=== PATIENT | male | born 1955 | race Caucasian/White ===

== ENCOUNTER 2020-05-26 15:54 | Outpatient (CLI) | payer BC, SELFPAY ==
[2020-05-26 17:03] LABS: SARS-CoV-2 Ag Negative (Negative)
== END 2020-05-26 15:55 | disposition home or self-care (01) ==
PROVIDERS: PCP Internal Medicine; Visit Provider Internal Medicine
DX: Z20.828 Contact with and (suspected) exposure to other viral communicable diseases (principal)
CPT/HCPCS: 87426

== ENCOUNTER 2020-06-25 15:40 | Outpatient (CLI) | payer BC, SELFPAY ==
[2020-06-25 16:46] LABS: SARS-CoV-2 Ag Positive (Negative)
== END 2020-06-25 15:41 | disposition home or self-care (01) ==
LOC: CHSLAB 15:42
PROVIDERS: PCP Internal Medicine; Visit Provider Internal Medicine
DX: U07.1 COVID-19 (principal)
CPT/HCPCS: 87426; C9803

== ENCOUNTER 2020-06-27 10:30 | Outpatient (RCR) | payer BC, SELFPAY ==
--- NOTE | 2020-06-26 12:14 | PC.NURSE ---
Patient instructed on covid infusion procedure and side effects.
[2020-06-27 10:17] VITALS: BP 156/83; PULSE 74; RESP 20; TEMP 37.2; O2SAT 98
[2020-06-27] MEDS: diphenhydrAMINE HCl CAP 25 MG CAPSULE PO (10:25)
[2020-06-27] MEDS: ACETAMINOPHEN 325 MG TABLET 650 MG PO (10:25)
[2020-06-27] MEDS: FAMOTIDINE 20 MG TABLET PO (10:25)
--- NOTE | 2020-06-27 11:02 | PC.NURSE ---
Patient given covid 19 antibody discharge instruction sheet and patient given written facts sheet on covid 19 and Bamlanivimab with understanding stated to instructions.
[2020-06-27 12:22] VITALS: BP 106/57; PULSE 57; O2SAT 98
--- NOTE | 2020-06-30 10:33 | PC.NURSE ---
Patient states he had no side effects from the Bamlanivimab infusion. Patient states he feels a little better and had no side effects from the infusion.
== END 2020-06-30 11:26 ==
LOC: AMCINF 10:30
PROVIDERS: PCP Internal Medicine; Visit Provider Internal Medicine
DX: Z23 Encounter for immunization (principal); U07.1 COVID-19; I12.9 Hypertensive chronic kidney disease with stage 1 through stage 4 chronic kidney disease, or unspecified chronic kidney disease; N18.9 Chronic kidney disease, unspecified; E11.9 Type 2 diabetes mellitus without complications
CPT/HCPCS: A9270; J7050; M0239; Q0239

== ENCOUNTER 2020-07-04 11:33 | Outpatient (CLI) | payer BC, SELFPAY ==
--- NOTE | ~2020-07-04 | XR_ITS ---
EXAMINATION: XR chest 2V EXAM DATE: 07/04/2020 12:00 INDICATION: Tachycardia. COVID pneumonia. TECHNIQUE: Frontal and lateral projections of the chest obtained and reviewed. Comparison is made to prior examination from 05/26/2016. FINDINGS: Possible small amount of bilateral groundglass opacity without confluent consolidation. Fol low-up can be obtained if symptoms persist. No pneumothorax or pleural effusion. Cardiomediastinal si lhouette is normal. Patient has diffuse idiopathic skeletal hyperostosis (DISH). There are cholecyste ctomy clips. IMPRESSION: Possible small amount of ill-defined acute infectious process. Reviewed, dictated and finalized at location A. Y GRAZER
== END 2020-07-04 11:34 | disposition home or self-care (01) ==
LOC: CHSIMG 11:35
PROVIDERS: PCP Internal Medicine; Visit Provider Internal Medicine
DX: U07.1 COVID-19 (principal); J12.82 Pneumonia due to coronavirus disease 2019; I48.91 Unspecified atrial fibrillation; I10 Essential (primary) hypertension; E11.9 Type 2 diabetes mellitus without complications
CPT/HCPCS: 71046

== ENCOUNTER 2020-07-09 13:14 | Emergency (ER) | payer BC, SELFPAY ==
[2020-07-09] VITALS (9 sets, daily range): BP systolic 90–144; BP diastolic 52–93; PULSE 67–100; RESP 20; TEMP 36.4–36.7; O2SAT 84–96
--- NOTE | ~2020-07-09 | XR_ITS ---
XR chest 1V portable DATE: 07/09/2020 14:27 INDICATION: Chest pain and pressure for 3 days. Covid diagnosis on 06/25/2020. TECHNIQUE: Portable upright AP chest on July 09, 2020 1431 hours COMPARISON: 07/04/2020 2 view chest FINDINGS: Bilateral old rib fracture deformities. Ill-defined increased density overlying the left mid and lower lung zones is noted, which may indicat e pneumonia. Pleural thickening would be another consideration. Consider CT thorax for more definitiv e evaluation. Right lung appears clear. Old pulmonary granulomatous disease is noted on the left. Normal heart size. No hilar or mediastinal enlargement. No pleural effusion or pulmonary vascular congestion or pneumothorax. IMPRESSION: Multiple bilateral old rib fractures Nonspecific ill-defined increased density overlying the left mid and lower lung zones, which might in dicate infiltrate or possibly pleural thickening. Consider CT thorax for more definitive evaluation Old pulmonary granulomatous disease Reviewed, dictated and finalized at location A. [facility] [employer] IMPRESSION: Multiple bilateral old rib fractures Nonspecific ill-defined increased density overlying the left mid and lower lung zones, which might indicate infiltrate or possibly pleural thickening. Conside r CT thorax for more definitive evaluation Old pulmonary granulomatous disease
--- NOTE | 2020-07-09 13:42 | ECG_ITS ---
Measurements Intervals [place] Rate: 93 P: [place]: 0 QRS: 46 QRSD: 102 T: 64 QT: 377 QTc: 470 Interpretive Statements ATRIAL FIBRILLATION VENTRICULAR PREMATURE COMPLEX DELAYED PRECORDIAL R/S TRANSITION BASELINE ARTIFACT- I, II, III, AVF ABNORMAL ECG Electronically Signed On 07-09-2020 13:57:43 RIB SAWYER by Rishabh Helms D.O.
--- NOTE | 2020-07-09 13:45 | ED.GENADULT ---
HPI - General Adult General Chief complaint: Chest Pain Stated complaint: chest pains Source: patient Mode of arrival: ambulatory History of Present Illness HPI narrative: Edward is a 65M with a complex PMH including gout, HTN, HLD, Afib, and mood disorder that was at his PCP office and was found to have tachycardia with an irregularly irregular rhythm and chest pain so he was sent to the ED. His chest pain started 3 days ago when he was at home. It was originally getting better but then got worse today. It is described as a 4/10 pressure in his chest that does not radiate. It is accompanied by some lightheadedness but no nausea/vomiting or shortness of breath. Related Data Home Medications Medication Instructions Recorded Confirmed allopurinol 100 mg PO BID 06/27/20 07/09/20 amitriptyline 25 mg PO HS 06/27/20 07/09/20 aspirin [Aspir-81] 81 mg DAILY 06/27/20 07/09/20 atorvastatin 40 mg PO DAILY 06/27/20 07/09/20 carvedilol 25 mg PO BID 06/27/20 07/09/20 duloxetine 60 mg PO DAILY 06/27/20 07/09/20 empagliflozin [Jardiance] 25 mg PO DAILY 06/27/20 07/09/20 ezetimibe 10 mg PO DAILY 06/27/20 07/09/20 felodipine 5 mg PO DAILY 06/27/20 07/09/20 fenofibrate 160 mg PO DAILY 06/27/20 07/09/20 gabapentin 1,200 mg PO QPM 06/27/20 07/09/20 icosapent ethyl [Vascepa] 1 g PO BID 06/27/20 07/09/20 insulin regular hum U-500 conc 180 unit SUBCUT QAM 06/27/20 07/09/20 [Humulin R U-500 (Conc) Insulin] magnesium 30 mg PO DAILY 06/27/20 07/09/20 montelukast 10 mg PO DAILY 06/27/20 07/09/20 pantoprazole 40 mg PO QAM 06/27/20 07/09/20 prednisone 5 mg PO DAILY 06/27/20 07/09/20 torsemide 20 mg PO QAM 06/27/20 07/09/20 apixaban [Eliquis] 5 mg PO DAILY 07/09/20 07/09/20 Allergies Allergy/AdvReac Type Severity Reaction Status Date / Time Penicillins Allergy Unknown Verified 07/09/20 13:49 Review of Systems Constitutional: Constitutional: Denies chills and Denies fever(s) Eyes: Eyes: Reports no additional eye complaints ENT: Reports system reviewed and no additional complaints, except as documented Cardiovascular: Cardiovascular: Reports as per HPI Respiratory: Respiratory: Reports no additional respiratory complaints Gastrointestinal: Gastrointestinal: Reports no additional gastrointestinal complaints Genitourinary: Genitourinary: Reports no additional male genitourinary complaints Musculoskeletal: Musculoskeletal: Reports no additional musculoskeletal complaints Integumentary/Breasts: Skin/Breast: Reports system reviewed and no additional complaints, except as docu Neurologic: Reports system reviewed and no additional complaints, except as documented Psychiatric: Psychiatric: Reports no additional psychiatric complaints Endocrine: Endocrine: Reports no additional endocrine complaints Hematologic/Lymphatic: Hematologic/Lymphatic: Reports no additional hematologic/lymphatic complaints Allergic/Immunologic: Allergic/Immunologic: Reports no additional allergic/immunologic complaints [facility] Social History Social History Smoking status: Never smoker Gender identity (if verbalized by the patient): Male Spiritual care concerns: No Exam Const: General: no acute distress and alert Orientation/consciousness: patient oriented x3 Limitations: No altered mental status HENMT: Head: normal to inspection Other: atraumatic Eyes: Pupils: Equal, round and reactive pupils present Neck: Neck: normal visual inspection Chest: Chest palpation & inspection: normal inspection of the chest Resp: Effort & Inspection: normal respiratory effort, not labored, no retractions and not tachypneic Auscultation: clear to auscultation bilaterally Cardio: Rate: regular rate Other: irregularly irregular rhythm, no murmur GI: GI Palp: Yes Soft to palpation, No Tenderness to palpation present (GI) and No Guarding due to palpation present (GI) Back/Spine/Pelvis: Back: no CVA tenderness Ski
[2020-07-09] MEDS: NITROGLYCERIN SL 0.4 MG TABLET SUBLINGUAL ×2 (14:00→14:14)
[2020-07-09] MEDS: ASPIRIN 81 MG CHEWABLE TABLET 324 MG PO (14:03)
--- NOTE | 2020-07-09 14:03 | PC.NURSE ---
1400 CP 09/13 B/P 133/77 NITRO #1 GIVEN
[2020-07-09 14:06] LABS: Basophils Absolute Auto 0.05 K/mm3 (0.00-0.10); Basophils Percent Auto 0.6 % (0.0-1.0); Eosinophils Percent Auto 3.7 % (1.0-6.0); Hematocrit 41.5 % (40.0-54.0); Hemoglobin 13.7 g/dL (14.0-18.0); Immature Granulocyte Absolute 0.04 K/mm3 (0.00-0.00); Immature Granulocyte Percent A 0.5 % (0.0-0.0); Lymphocytes Absolute Auto 1.99 K/mm3 (1.10-4.50); Lymphocytes Percent Auto 24.7 % (18.0-42.0); Mean Corpuscular Hemoglobin 27.6 pg (27.0-31.0); Mean Corpuscular Volume 83.5 fL (78.0-102.0); Mean Platelet Volume 9.7 fl (8.7-11.0); Monocytes Absolute Auto 0.87 K/mm3 (0.10-0.90); Monocytes Percent Auto 10.8 % (2.0-11.0); Neutrophils Absolute Auto 4.8 K/mm3 (1.7-7.2); Neutrophils Percent Auto 59.7 % (50.0-70.0); Platelet Count Result 343 K/mm3 (150-420); Red Blood Count 4.97 M/mm3 (4.70-6.10); Red Cell Distribution Width 13.8 % (11.6-14.4); White Blood Count 8.1 K/mm3 (4.8-10.8)
--- NOTE | 2020-07-09 14:16 | PC.NURSE ---
1414 CP 07/16 B/P 140/90 NITRO#2 GIVEN
[2020-07-09 14:20] LABS: INR 1.2; Prothrombin Time 12.4 Seconds (9.50-12.10)
[2020-07-09 14:22] LABS: BNP 273 pg/mL (0-100)
[2020-07-09 14:30] LABS: Alanine Aminotransferase 29 U/L (16-63); Albumin Level 3.6 g/dL (3.4-5.0); Alkaline Phosphatase 79 U/L (46-116); Anion Gap 9 mmol/L (8-16); Aspartate Amino Transferase 20 U/L (15-37); Bilirubin,Total 0.3 mg/dL (0.00-1.00); Blood Urea Nitrogen 33 mg/dL (7-18); Calcium 9.1 mg/dL (8.5-10.1); Carbon Dioxide 32 mmol/L (21-32); Chloride 102 mmol/L (98-108); Estimated CRCL calculation 58 ml/min; Estimated Glomerular Filt Rate 58; Glucose 172 mg/dL (70-99); Lipase 306 U/L (73-393); Osmolality Calculated 307 mOsm/kg (285-295); Potassium 3.6 mmol/L (3.5-5.1); Sodium 143 mmol/L (136-145); Total Protein 7.4 g/dL (6.4-8.2); Troponin I 8.7 ng/L (0.00-60.4)
[2020-07-09 14:56] LABS: Amphetamine Screen Urine Negative (Negative); Barbiturate Screen Urine Negative (Negative); Benzodiazepines Screen Urine Negative (Negative); Cannabinoid Screen Urine Negative (Negative); Cocaine Screen Urine Negative (Negative); Methadone Screen Urine Negative (Negative); Opiate Screen Urine Negative (Negative); Phencyclidine Screen Urine Negative (Negative)
== END 2020-07-09 16:14 | disposition short-term general hospital (02) ==
PROVIDERS: Emergency Provider Family Medicine; PCP Internal Medicine
DX: I48.91 Unspecified atrial fibrillation (principal); R07.9 Chest pain, unspecified; I10 Essential (primary) hypertension; E78.5 Hyperlipidemia, unspecified; Z79.899 Other long term (current) drug therapy
CPT/HCPCS: 36415; 71045; 80053; 80307; 83690; 83880; 84443; 84484; 85025; 85610; 93005; 99285; A9270

== ENCOUNTER → 2020-11-11 02:50 | Outpatient (CLI) | payer BC, SELFPAY ==
[2020-11-11 23:32] LABS: SARS-CoV-2 RNA PCR Negative
== END ==
PROVIDERS: PCP Internal Medicine; Visit Provider Internal Medicine Critical Care Medicine
DX: Z01.812 Encounter for preprocedural laboratory examination (principal); Z20.822 Contact with and (suspected) exposure to COVID-19
CPT/HCPCS: C9803; U0003; U0005

== ENCOUNTER 2020-11-14 16:00 | Outpatient (CLI) | payer BC, SELFPAY ==
--- NOTE | 2020-11-28 16:09 | WPDSLEEPSTUD ---
Sleep Study Date of Study: 11/14/20 Ordering Provider: Abhijeet Sandoval MD Interpreting Physician: Elodia Louise MD Sleep Study Type: Split Polysomnogram Height: 1.7 m Weight: 97.522 kg Body Mass Index: 33.6 Neck Circumference (inches): 18 [place]: 23 Reason for Sleep Study Documented obstructive sleep apnea, non restorative sleep, CPAP is now ineffective * 09/28/2005-split night sleep study at [facility] in [facility]; moderate obstructive sleep apnea, worse in the supine position, hypoxemia to 85% on baseline; treatment emergent centrals on the initial study, optimal pressure 10 cm. His AHI was 8. Sleep History Edward Cano is a 65 year old man who has a history of obstructive sleep apnea. His sleep study was about 15 years ago. his optimal pressure was 10 cm. He currently has broken sleep, he wakes up feeling tired and he is excessively fatigued and sleepy during the day. He frequently awakens short of breath from sleep. He does not awaken at night with heartburn, belching or coughing. He constantly snores and he constantly snores loudly enough that others complain about it. He rarely has trouble sleep with a cold. He occasionally wakes up gasping for breath during night. He constantly has breathing problems at night observed by others. He frequently sweats excessively at night. He occasionally notices his heart pounding or beating irregularly night. He constantly falls asleep during the day, constantly falls asleep involuntarily and frequently falls asleep while driving. He occasionally falls asleep while exerting physical effort. He does not have loss of muscle tone with strong emotion. He constantly has daytime difficulties due to excessive daytime sleepiness. he really feels paralyzed on waking or falling asleep. He frequently has vivid dreamlike scenes upon awakening or falling asleep. He does not feel afraid to go to sleep. He occasionally has nightmares. He frequently remembers his dreams. He constantly has racing thoughts. He occasionally feels sad, depressed and anxious. He does not have muscular tension. He frequently notices parts of his body jerking. He constantly kicks at night. He occasionally has crawling and aching feelings in his legs. He frequently has leg pain at night. He rarely has morning jaw pain. He constantly grinds his teeth during sleep and constantly is bothered by pain during the day, frequently awakened by pain at night. He constantly wakes up feeling stiff in the morning, constantly has sore achy muscles in the morning and occasionally has pain in the spine and neck. He has palpitations, nightmares, dizziness, fatigue and memory problems. He takes antacids regularly. Normal bedtime is 10:30 p.m. falling asleep immediately waking 3 times at night on average 15 minutes. He will relax and try to go to sleep again. He does not mention nocturia. He wakes in the morning at 6:00 a.m.. He sleeps later on the weekends, going to bed at midnight and waking at 11:00 a.m.. He does take naps in the afternoon or evening. A short nap is not refreshing. He is usually drowsy for 2 hours or longer. He feels better in the afternoon compared to earlier in the day. Habits: He never smoked tobacco. No caffeine, alcohol, or recreational drugs. PMFSH Past Medical History Medical History (Updated 11/28/20 @ 18:50 by Elodia Louise MD) Acid reflux Chronic pain Depression Diabetes mellitus Hypertension Obstructive sleep apnea Seasonal allergies Surgical History Surgical History (Updated 11/28/20 @ 16:23 by Elodia Louise MD) S/P ablation of atrial fibrillation Social History Social History Smoking status: Never smoker Gender identity (if verbalized by the patient): Male Spiritual care concerns: No Medications Home Medications Medication Instructions Recorded Confirmed Type allopurinol 100
[2020-11-28 19:10] VITALS: BMI 33.6
== END 2020-11-15 07:19 | disposition home or self-care (01) ==
LOC: ANHCSM 11-17 10:15
PROVIDERS: PCP Internal Medicine; Visit Provider Internal Medicine
DX: G47.33 Obstructive sleep apnea (adult) (pediatric) (principal); G47.39 Other sleep apnea; I10 Essential (primary) hypertension; E11.9 Type 2 diabetes mellitus without complications; Z79.82 Long term (current) use of aspirin; Z79.4 Long term (current) use of insulin; Z79.899 Other long term (current) drug therapy; E66.9 Obesity, unspecified; Z68.33 Body mass index [BMI] 33.0-33.9, adult
CPT/HCPCS: 95811

== ENCOUNTER 2020-12-22 12:28 | Outpatient (CLI) | payer BC, SELFPAY ==
--- NOTE | ~2020-12-22 | XR_ITS ---
EXAMINATION: XR chest 2V DATE: 12/22/2020 13:27 INDICATION: Cough, history of COVID 19 TECHNIQUE: PA and lateral views of the chest are obtained. COMPARISON: 07/19/2020 FINDINGS: The lungs are free of acute opacities. There is no pleural effusion or pneumothorax. The ca rdiomediastinal silhouette is normal. There are bridging osteophytes at multiple levels in the spine, consistent with diffuse idiopathic skeletal hyperostosis (DISH). Healed left-sided rib fractures are noted. IMPRESSION: 1. No acute cardiopulmonary abnormality. Reviewed, dictated and finalized at location B.
[2020-12-22 13:31] LABS: Basophils Absolute Auto 0.05 K/mm3 (0.00-0.10); Basophils Percent Auto 0.9 % (0.0-1.0); Eosinophils Absolute Auto 0.26 K/mm3 (0.02-0.50); Eosinophils Percent Auto 4.5 % (1.0-6.0); Hematocrit 48.6 % (40.0-54.0); Hemoglobin 15.3 g/dL (14.0-18.0); Immature Granulocyte Absolute 0.03 K/mm3 (0.00-0.00); Immature Granulocyte Percent A 0.5 % (0.0-0.0); Lymphocytes Absolute Auto 1.31 K/mm3 (1.10-4.50); Lymphocytes Percent Auto 22.9 % (18.0-42.0); Mean Corpuscular HGB Conc 31.5 g/dL (32.0-36.0); Mean Corpuscular Hemoglobin 26.7 pg (27.0-31.0); Mean Corpuscular Volume 84.8 fL (78.0-102.0); Mean Platelet Volume 9.8 fl (8.7-11.0); Monocytes Absolute Auto 0.51 K/mm3 (0.10-0.90); Monocytes Percent Auto 8.9 % (2.0-11.0); Neutrophils Absolute Auto 3.6 K/mm3 (1.7-7.2); Neutrophils Percent Auto 62.3 % (50.0-70.0); Platelet Count Result 276 K/mm3 (150-420); Red Blood Count 5.73 M/mm3 (4.70-6.10); Red Cell Distribution Width 14.1 % (11.6-14.4); White Blood Count 5.7 K/mm3 (4.8-10.8)
[2020-12-22 14:06] LABS: Alanine Aminotransferase 32 U/L (16-63); Albumin Level 3.9 g/dL (3.4-5.0); Alkaline Phosphatase 76 U/L (46-116); Anion Gap 12 mmol/L (8-16); Aspartate Amino Transferase 24 U/L (15-37); Bilirubin,Total 0.5 mg/dL (0.00-1.00); Blood Urea Nitrogen 38 mg/dL (7-18); Calcium 9.5 mg/dL (8.5-10.1); Carbon Dioxide 28 mmol/L (21-32); Chloride 101 mmol/L (98-108); Estimated Glomerular Filt Rate 44; Glucose 381 mg/dL (70-99); Osmolality Calculated 317 mOsm/kg (285-295); Potassium 4.8 mmol/L (3.5-5.1); Sodium 141 mmol/L (136-145); Total Protein 7.7 g/dL (6.4-8.2)
[2020-12-22 14:22] LABS: SARS-CoV-2 RNA PCR Negative (Negative)
== END 2020-12-22 12:29 | disposition home or self-care (01) ==
LOC: CHSIMG 12:32
PROVIDERS: PCP Internal Medicine; Visit Provider Internal Medicine
DX: R05 Cough (principal); Z20.822 Contact with and (suspected) exposure to COVID-19
CPT/HCPCS: 36415; 71046; 80053; 85025; C9803; U0003; U0005

== ENCOUNTER 2021-01-15 09:45 | Outpatient (RCR) | payer BC, SELFPAY ==
--- NOTE | 2021-01-15 11:04 | PTOPEVAL ---
Thank you for referring Edward Cano to [facility].? The patient is scheduled to be seen for therapy? ____x/week for ___ weeks. Please review, sign, date and return this plan of care FELIBERTO. I agree with and certify that the following plan of care is medically necessary. Referring Physician Date Admitting Provider: Attending Provider: Abhijeet Sandoval MD Referring Provider: *PT Outpatient Evaluation Start: 01/15/21 10:01 Freq: Status: Active Protocol: Document 01/15/21 10:05 [facility] (Rec: 01/15/21 10:48 [facility] [id number]) Therapy Assessment Status Assessment Status Assessment Status Evaluation Outpatient Past Medical History Cardiovascular History Hx Atrial Fibrillation Yes Hx Hypertension Yes Evaluation Information Problem Diagnosis unsteady gait, poor balance, fall assessment Onset 12/17/20 Subjective Information patient reports he has been Query Text:As Reported By Patient/ sick for about 1 month with Family bronchitis. he reports he is getting a little better. he reports since this sickness came about he has been having trouble with his balance and weakness in the LE's. he reports he has had 3 falls in the last month. he rpeorts he did fall prior to this sickness. he reports he has a history of fall with rib fracture prior to being sick. he reports on average he falls about 8 times a year. he reports he does use a cane when he is unsure of his balance. he reports the fall with rib fracture he does believe he passed out, but most of the time he will fall tripping over his feet. he reports he does shuffle his feet. he reports he has new inserts in his shoes for foot support. Prior Level of Function Comments Additional Prior Level of Function patient reports prior to a Comments month ago he was having issues with his balance. however, he has had worsening weakness and unsteady gait since his sickness. Pain Assess
--- NOTE | 2021-02-18 17:37 | PTOPEVAL ---
Thank you for referring Edward Cano to [facility].? The patient is scheduled to be seen for therapy? ____x/week for ___ weeks. Please review, sign, date and return this plan of care FELIBERTO. I agree with and certify that the following plan of care is medically necessary. Referring Physician Date Admitting Provider: Attending Provider: Abhijeet Sandoval MD Referring Provider: *PT Outpatient Evaluation Start: 01/15/21 10:01 Freq: Status: Active Protocol: Document 02/18/21 13:45 [facility] (Rec: 02/18/21 17:36 [facility] [id number]) Therapy Assessment Status Assessment Status Assessment Status Discharge Outpatient Past Medical History Cardiovascular History Hx Atrial Fibrillation Yes Hx Hypertension Yes Evaluation Information Problem Diagnosis unsteady gait, poor balance, fall assessment Onset 12/17/20 Subjective Information patient reports he feels good Query Text:As Reported By Patient/ this date. he reports no Family pain and no falls. he reports he has been compliant with cane use at all times for ambulation. patient reports he is willing to continue exercise in fall prevention class. Pain Assessment Timing of Pain Assessment Timing of Pain Assessment Assessment Self Report Self Report Pain Level 0 Pain Score Pain Score 0: Self Report Lower Extremity Range of Motion General Lower Extremity Range of Motion Gross Lower Extremity Range of Motion 10 degrees active L ankle DF Comments with knee extended Lower Extremity Muscle Strength Testing General Lower Extremity Strength Gross Lower Extremity Strength 4+/5 bilateral hip flex and abd 5/5 bilateral knee flex and ext 5/5 bilateral ankle DF 4+/5 bilateral ankle PF Muscle Length Testing Muscle Length Testing Gastrocnemius Length (R) Mild Tightness,(L) Mild Tightness Balance Assessment Tinetti Balance Assessment Sitting Balance Steady, safe Ability to Arise Able, uses arms to help Attempts to Arise Arises on 1st attempt Immediate Standing Balance Steady w/o support Standing Balance Narrow stance w/o support Nudged Response Staggers, catches self Standing with Eyes Closed Steady Step Pattern Turning 360 Degrees Continuous steps Stability Turning 360 Degrees Unsteady, grabs/staggers Sitting Down Uses arms or
== END 2021-02-18 13:24 | disposition home or self-care (01) ==
LOC: CHSPT 09:45
PROVIDERS: PCP Internal Medicine; Visit Provider Internal Medicine
DX: I95.1 Orthostatic hypotension (principal); G62.9 Polyneuropathy, unspecified; R26.9 Unspecified abnormalities of gait and mobility
CPT/HCPCS: 97110; 97162; 97530

== ENCOUNTER 2021-12-13 23:10 | Emergency (ER) | payer MEDICARE, SELFPAY ==
--- NOTE | ~2021-12-13 | CT_ITS ---
EXAMINATION:CT diagnostic chest wo con DATE: 12/14/2021 01:13 INDICATION: Right chest injury and pain. Shortness of breath. TECHNIQUE: Computed tomography (CT) of the chest was performed without intravenous contrast. Automate d exposure control and iterative reconstruction technique were employed. The dose-length product (DLP ) was 353.20 mGy-cm. COMPARISON: Chest CT 06/20/2014 FINDINGS: Calcified left lung nodules and calcified left hilar and mediastinal lymph nodes are consis tent with old granulomatous disease. No pleural effusion. The heart size is normal. There are coronar y artery calcifications. No pericardial effusion. There is diffuse hepatic steatosis. There are old h ealed bilateral rib fractures. There are acute fractures of anterior right fifth and sixth ribs. Ther e are bridging endplate osteophytes at multiple levels in the spine, consistent with diffuse idiopath ic skeletal hyperostosis (DISH). There is mild chronic anterior wedging of multiple vertebral bodies. There is moderate thoracic spondylosis. IMPRESSION: 1. Acute fractures of anterior right fifth and sixth ribs. Reviewed, dictated and finalized at location A.
[2021-12-13 23:46] VITALS: BP 194/102; PULSE 88; RESP 18; TEMP 36.6; O2SAT 97
[2021-12-14] VITALS (31 sets, daily range): BP systolic 123–184; BP diastolic 64–93; PULSE 71–77; O2SAT 91–97
--- NOTE | 2021-12-14 00:24 | ECG_ITS ---
Measurements Intervals [place] Rate: 82 P: 51 DC: 184 QRS: -7 QRSD: 88 T: 59 QT: 363 QTc: 425 Interpretive Statements SINUS RHYTHM NONSPECIFIC T-WAVE ABNORMALITY- HIGH LATERAL LEADS BASELINE ARTIFACT- I, II, III, AVR, AVL, AVF, V1, V3-V6 BORDERLINE ECG Electronically Signed On 12-14-2021 6:13:14 CDT by Rishabh Helms D.O.
[2021-12-14] MEDS: MORPHINE SULFATE (*CRX) 2 MG/ML INJ IV PUSH (00:32)
[2021-12-14] MEDS: ONDANSETRON INJ 4 MG/2 ML VIAL IV PUSH (00:33)
[2021-12-14] MEDS: ACETAMINOPHEN 325 MG TABLET 650 MG PO (00:33)
[2021-12-14 01:46] LABS: Basophils Absolute Auto 0.05 K/mm3 (0.00-0.10); Eosinophils Absolute Auto 0.18 K/mm3 (0.02-0.50); Eosinophils Percent Auto 3.6 % (1.0-6.0); Hematocrit 37.4 % (37.0-46.0); Hemoglobin 13.7 g/dL (12.4-15.3); Immature Granulocyte Absolute 0.02 K/mm3 (0.00-0.00); Immature Granulocyte Percent A 0.4 % (0.0-0.0); Lymphocytes Absolute Auto 1.15 K/mm3 (1.10-4.50); Lymphocytes Percent Auto 22.8 % (18.0-42.0); Mean Corpuscular HGB Conc 36.6 g/dL (32.0-36.0); Mean Corpuscular Hemoglobin 32.6 pg (27.0-31.0); Mean Platelet Volume 10.3 fl (8.7-11.0); Monocytes Absolute Auto 0.59 K/mm3 (0.10-0.90); Monocytes Percent Auto 11.7 % (2.0-11.0); Neutrophils Absolute Auto 3.1 K/mm3 (1.7-7.2); Neutrophils Percent Auto 60.5 % (50.0-70.0); Platelet Count Result 201 K/mm3 (150-420); Red Cell Distribution Width 14.1 % (11.6-14.4); White Blood Count 5.1 K/mm3 (4.8-10.8)
[2021-12-14] MEDS: SODIUM CHLORIDE 0.9% IV 1,000 ML 999 ML IV CONT ×2 (01:48→02:49)
[2021-12-14 02:06] LABS: Albumin Level 3.1 g/dL (3.4-5.0); Alkaline Phosphatase 109 U/L (46-116); Anion Gap 9 mmol/L (8-16); Aspartate Amino Transferase < 10 U/L (15-37); Blood Urea Nitrogen 26 mg/dL (7-18); Calcium 7.1 mg/dL (8.5-10.1); Carbon Dioxide 25 mmol/L (21-32); Chloride 96 mmol/L (98-108); Estimated Glomerular Filt Rate 51; Osmolality Calculated 294 mOsm/kg (285-295); Potassium 4.1 mmol/L (3.5-5.1); Sodium 130 mmol/L (136-145); Troponin I 6.6 ng/L (0.00-60.4)
[2021-12-14 02:09] LABS: Alanine Aminotransferase < 6 U/L (16-63); Lactic Acid Reflex 1.5 mmol/L (0.4-2.0)
[2021-12-14 02:10] LABS: Glucose 457 mg/dL (70-99)
[2021-12-14] MEDS: CALCIUM CARBONATE (TUMS) 500 MG (200 MG ELEMENTAL) 1000 MG PO (02:49)
[2021-12-14] MEDS: INSULIN HUMAN REGULAR (*BKC) 100 UNITS/ML 12 UNITS IV PUSH (02:49)
[2021-12-14 02:56] LABS: Acetone Negative (Negative)
--- NOTE | 2021-12-14 02:59 | PC.NURSE ---
pt given incentive spirometer and taught of use
[2021-12-14 03:55] LABS: Glucose Point of Care 311 mg/dl (65-105)
[2021-12-14 04:55] LABS: Glucose Point of Care 273 mg/dl (65-105)
--- NOTE | 2021-12-14 05:05 | ED.FALL ---
HPI - Fall General Chief Complaint: Fall Stated Complaint: FAll/Rib pain Time Seen by Provider: 12/13/21 23:14 Source: patient, family and RN notes reviewed Mode of arrival: ambulatory Limitations: no limitations History of Present Illness HPI Narrative: right ribs painful MD complaint: fall Onset (ago): hour(s) (8) Fall from: standing Place fall occurred: home Loss of consciousness: none Prolonged down time: no Symptoms prior to fall: none Context: tripped/slipped Location of injury: chest Severity scale (1-10): 7 Quality: aching Associated symptoms (after fall): chest pain Related Data Home Medications Medication Instructions Recorded Confirmed allopurinol 100 mg tablet 100 mg PO BID 06/27/20 12/13/21 amitriptyline 25 mg tablet 25 mg PO HS 06/27/20 12/13/21 aspirin 81 mg tablet,delayed 81 mg DAILY 06/27/20 12/13/21 release atorvastatin 40 mg tablet 40 mg PO DAILY 06/27/20 12/13/21 carvedilol 25 mg tablet 25 mg PO BID 06/27/20 12/13/21 duloxetine 60 mg capsule,delayed 60 mg PO DAILY 06/27/20 12/13/21 release empagliflozin 25 mg tablet 25 mg PO DAILY 06/27/20 12/13/21 (Jardiance) ezetimibe 10 mg tablet 10 mg PO DAILY 06/27/20 12/13/21 fenofibrate 160 mg tablet 160 mg PO DAILY 06/27/20 12/13/21 gabapentin 300 mg tablet,extended 1,200 mg PO QPM 06/27/20 12/13/21 release 24 hr icosapent ethyl 1 gram capsule 1 g PO BID 06/27/20 12/13/21 (Vascepa) insulin regular hum U-500 conc 500 180 unit subcut QAM 06/27/20 12/13/21 unit/mL subcutaneous soln (Humulin R U-500 (Concentrated) Insulin) montelukast 10 mg tablet 10 mg PO DAILY 06/27/20 12/13/21 pantoprazole 40 mg tablet,delayed 40 mg PO QAM 06/27/20 12/13/21 release prednisone 5 mg tablet 5 mg PO DAILY 06/27/20 12/13/21 torsemide 20 mg tablet 20 mg PO QAM 06/27/20 12/13/21 apixaban 5 mg tablet (Eliquis) 5 mg PO DAILY 07/09/20 12/13/21 fentanyl 50 mcg/hr transdermal 50 patch transdermal 3XD 12/13/21 12/13/21 patch meclizine 12.5 mg tablet 12.5 tablet PO DAILY 12/13/21 12/13/21 rivaroxaban 20 mg tablet (Xarelto) 20 mg PO DAILY 12/13/21 12/13/21 Allergies Allergy/AdvReac Type Severity Reaction Status Date / Time Penicillins Allergy Unknown Verified 07/09/20 13:49 Review of Systems Review of Systems: All systems reviewed & are unremarkable except as noted in HPI and below Constitutional: Constitutional: Reports no additional constitutional complaints Eyes: Eyes: Reports no additional eye complaints ENT: Reports system reviewed and no additional complaints, except as documented Cardiovascular: Cardiovascular: Reports no additional cardiovascular complaints Respiratory: Respiratory: Reports no additional respiratory complaints Gastrointestinal: Gastrointestinal: Reports no additional gastrointestinal complaints Musculoskeletal: Musculoskeletal: Reports no additional musculoskeletal complaints Integumentary/Breasts: Skin/Breast: Reports system reviewed and no additional complaints, except as docu Neurologic: Reports system reviewed and no additional complaints, except as documented Psychiatric: Psychiatric: Reports no additional psychiatric complaints Endocrine: Endocrine: Reports no additional endocrine complaints Hematologic/Lymphatic: Hematologic/Lymphatic: Reports no additional hematologic/lymphatic complaints Allergic/Immunologic: Allergic/Immunologic: Reports no additional allergic/immunologic complaints [facility] Past Medical History Medical History Acid reflux Chronic pain Depression Diabetes mellitus Hyperglycemia due to diabetes mellitus Hypertension Obstructive sleep apnea Ribs, multiple fractures Seasonal allergies Surgical History Surgical History S/P ablation of atrial fibrillation Social History Social History Smoking status: Never smoker Gender
== END 2021-12-14 05:29 | disposition home or self-care (01) ==
PROVIDERS: Emergency Provider Emergency Medicine; PCP Internal Medicine
DX: S22.41XA Multiple fractures of ribs, right side, initial encounter for closed fracture (principal); W19.XXXA Unspecified fall, initial encounter; E11.9 Type 2 diabetes mellitus without complications; I10 Essential (primary) hypertension
CPT/HCPCS: 36415; 71250; 80053; 82010; 82948; 83605; 84484; 85025; 93005; 96361; 96374; 96375; 99284; A9270; J1815; J2270; J2405; J7030

== ENCOUNTER 2021-12-14 15:35 | Outpatient (CLI) | payer MEDICARE, SELFPAY ==
--- NOTE | ~2021-12-14 | XR_ITS ---
[id number] 12/14/2021 16:02 Indication: Neck pain for 3 months Procedure: 4 views cervical spine Comparison: No prior studies for comparison. Findings: Vertebral body heights are maintained. C3-4 and C6-7. No prevertebral soft tissue swelling. Odontoid process is normal. There is mild multilevel uncinate and facet hypertrophy. Lung apices are normal. There is right carotid atherosclerosis. Impression: 1: Mild cervical spondylosis. Reviewed, dictated and finalized at location A. Impression: 1: Mild cervical spondylosis.
== END 2021-12-14 15:36 | disposition home or self-care (01) ==
LOC: CHSIMG 15:37
PROVIDERS: PCP Internal Medicine; Visit Provider Internal Medicine
DX: M54.2 Cervicalgia (principal)
CPT/HCPCS: 72040

== ENCOUNTER 2022-02-09 15:04 | Outpatient (CLI) | payer MEDICARE, SELFPAY ==
--- NOTE | ~2022-02-09 | XR_ITS ---
EXAMINATION: XR chest 2V DATE: 02/09/2022 15:31 INDICATION: 2 weeks of cough. COVID exposure. TECHNIQUE: PA and lateral views of the chest were obtained. COMPARISON: Chest radiograph dated 12/22/[address] dated 12/14/2021 FINDINGS: The lungs remain clear with no focal airspace opacities, pulmonary edema, pleural effusion or pneumot horax. The cardiomediastinal silhouette is normal. There is new callus formation associated with the fractures of the anterior right fifth and sixth ribs which appeared acute at the time of the CT from 2 months prior. Few additional old healed left-sided rib fractures. There are bridging osteophytes at multiple levels in the spine, consistent with diffuse idiopathic skeletal hyperostosis (DISH). Chron ic mild anterior wedging at T11 and T12. Cholecystectomy clips the upper abdomen. IMPRESSION: 1. No acute cardiopulmonary disease. Reviewed, dictated and finalized at location A.
[2022-02-09 15:43] LABS: Basophils Absolute Auto 0.07 K/mm3 (0.00-0.10); Basophils Percent Auto 0.6 % (0.0-1.0); Eosinophils Absolute Auto 0.14 K/mm3 (0.02-0.50); Eosinophils Percent Auto 1.2 % (1.0-6.0); Hematocrit 36.4 % (37.0-46.0); Immature Granulocyte Absolute 0.09 K/mm3 (0.00-0.00); Immature Granulocyte Percent A 0.8 % (0.0-0.0); Lymphocytes Absolute Auto 1.48 K/mm3 (1.10-4.50); Lymphocytes Percent Auto 12.6 % (18.0-42.0); Mean Corpuscular Hemoglobin 29.1 pg (27.0-31.0); Mean Corpuscular Volume 88.1 fL (78.0-102.0); Mean Platelet Volume 11.2 fl (8.7-11.0); Monocytes Absolute Auto 1.06 K/mm3 (0.10-0.90); Neutrophils Absolute Auto 8.9 K/mm3 (1.7-7.2); Neutrophils Percent Auto 75.8 % (50.0-70.0); Platelet Count Result 194 K/mm3 (150-420); Red Blood Count 4.13 M/mm3 (4.70-6.10); Red Cell Distribution Width 13.2 % (11.6-14.4); White Blood Count 11.8 K/mm3 (4.8-10.8)
[2022-02-09 15:59] LABS: Alanine Aminotransferase 16 U/L (16-63); Albumin Level 2.8 g/dL (3.4-5.0); Alkaline Phosphatase 80 U/L (46-116); Anion Gap 11 mmol/L (8-16); Aspartate Amino Transferase 15 U/L (15-37); Bilirubin,Total 0.7 mg/dL (0.00-1.00); Blood Urea Nitrogen 26 mg/dL (7-18); Calcium 8.8 mg/dL (8.5-10.1); Carbon Dioxide 26 mmol/L (21-32); Chloride 96 mmol/L (98-108); Estimated Glomerular Filt Rate 37; Potassium 4.3 mmol/L (3.5-5.1); Sodium 133 mmol/L (136-145)
[2022-02-09 16:05] LABS: CRP > 20.0 mg/dL (0.0-0.9); Glucose 531 mg/dL (70-99); Osmolality Calculated 304 mOsm/kg (285-295)
[2022-02-09 16:18] LABS: SARS-CoV-2 RNA PCR Negative (Negative)
== END 2022-02-09 15:05 | disposition home or self-care (01) ==
LOC: CHSLAB 15:11
PROVIDERS: PCP Internal Medicine; Visit Provider Internal Medicine
DX: R05.9 Cough, unspecified (principal); J06.9 Acute upper respiratory infection, unspecified; Z20.822 Contact with and (suspected) exposure to COVID-19
CPT/HCPCS: 36415; 71046; 80053; 85025; 86140; C9803; U0003; U0005

== ENCOUNTER 2022-04-05 14:26 | Outpatient (CLI) | payer MEDICARE, SELFPAY ==
--- NOTE | ~2022-04-05 | DEXA_ITS ---
Bone Density Report Name: BRENDA YIN Age: 66 Sex: Male Ethnicity: White Date of : 1955 Indication: history of glucocorticoids; prior fracture; asthma or emphysema; Referring Provider: ROSA, FEDE Piedra Study: Bone densitometry was performed. Exam Date: April 05, 2022 Accession number: [id number] Bone Density: Region BMD T-score Z-score Classification AP Spine(L2, L3, L4) 1.142 0.2 1.0 Normal Femoral Neck (Left) 0.957 0.2 1.3 Normal Total Hip (Left) 1.167 0.9 1.4 Normal Femoral Neck (Right) 0.902 -0.2 0.9 Normal Total Hip (Right) 1.073 0.3 0.8 Normal Total Hip Mean 1.120 0.6 1.1 Normal World Health Organization criteria for BMD impression classify patients as: Normal (T-score at or above -1.0), Osteopenia (T-score between -1.0 and -2.5), or Osteoporosis (T-score at or below -2.5). 10-year Fracture Risk: FRAX not reported because: All T-scores for Spine Total, Hip Total, Femoral Neck at or above -1.0 Clinical Information Provided by Patient: Has had a low trauma fracture Has taken Glucocorticoids Has used the following medications: Vitamin D Has the following medical conditions: Asthma or Emphysema Patient maximum height was 67 No regular weight bearing exercise Impression: The patient has normal bone mass. The patient has risk factors, including: previous fracture, history of glucocorticoid therapy. Discussion: BONE DENSITY IS ABOVE THE MINIMUM DESIRABLE LEVEL AT ALL SKELETAL SITES TESTED. This patient?s bone mineral density is above the minimum desirable level (T-score -1.0 or better) at all sites measured. The patient should follow a healthful lifestyle (good nutrition with adequate calcium and vitamin D, and appropriate weight-bearing exercise). Follow-Up: Consider repeating this study in 5 years or sooner if there is some new clinical indication. Reported by: TERESITA on 04/05/2022 2:52:00 PM. Reviewed, dictated and finalized at location A.
== END 2022-04-05 14:27 | disposition home or self-care (01) ==
PROVIDERS: PCP Internal Medicine; Visit Provider Internal Medicine Endocrinology, Diabetes & Metabolism
DX: M85.89 Other specified disorders of bone density and structure, multiple sites (principal)
CPT/HCPCS: 77080

== ENCOUNTER → 2022-04-21 14:35 | Outpatient (CLI) | payer MEDICARE, SELFPAY ==
--- NOTE | ~2022-04-21 | CT_ITS ---
EXAMINATION: CT abdomen wo con DATE: 04/21/2022 15:00 INDICATION: Abdominal pain TECHNIQUE: Computed tomography (CT) of the abdomen was performed without intravenous contrast. The do se-length product (DLP) was 715.36 mGy-cm. Automated exposure control and iterative reconstruction te chnique were employed. COMPARISON: 07/26/2015 FINDINGS: The lung bases are clear. The heart size is normal. There is a large volume of ingested mat erial in the stomach. There are multiple healed left-sided rib fractures. The gallbladder is surgical ly absent. The liver, spleen, pancreas, and adrenal glands are normal. There are punctate nonobstruct ing stones of the right kidney. The left kidney is unremarkable. There are no pathologically enlarged abdominal lymph nodes. There is no free intraperitoneal gas or evidence of bowel obstruction. There is a fat-containing umbilical hernia. There is moderate lumbar spondylosis. There are bridging osteop hytes at multiple levels in the the visualized lower thoracic spine, consistent with diffuse idiopath ic skeletal hyperostosis (DISH). IMPRESSION: 1. Large volume of ingested material in the stomach. Reviewed, dictated and finalized at location F. MAKER
== END ==
PROVIDERS: PCP Internal Medicine; Visit Provider Internal Medicine Endocrinology, Diabetes & Metabolism
DX: R10.9 Unspecified abdominal pain (principal)
CPT/HCPCS: 74150

== ENCOUNTER 2022-07-06 08:01 | Outpatient (CLI) | payer MEDICARE, SELFPAY ==
--- NOTE | ~2022-07-06 | US_ITS ---
EXAMINATION: US abdomen complete DATE: 07/06/2022 09:00 INDICATION: Abdominal pain TECHNIQUE: Multiple grayscale and Doppler ultrasound images of the abdomen were obtained. COMPARISON: CT, 04/21/2022 FINDINGS: Bowel gas obscures visualization of the pancreas. The visualized portions of the pancreas a re unremarkable. The liver is normal with normal echogenicity and echotexture. No surface nodularity. Normal hepatopetal flow in the main portal vein. The gallbladder is surgically absent. The normal co mmon bile duct measures 5 mm. The visualized portions of the aorta and inferior vena cava are normal. The spleen is normal in appearance and measures 9.2 cm. The right kidney measures 10.5 x 5.7 x 6 cm. The left kidney measures 11.1 x 5.8 x 4.5 cm. The kidneys demonstrate normal parenchymal echogenicity . There is no hydronephrosis. IMPRESSION: 1. No sonographic correlate for the patient's symptoms. Reviewed, dictated and finalized at location L. POLLUTION ENGINEER
== END 2022-07-06 08:02 | disposition home or self-care (01) ==
LOC: CHSIMG 08:03
PROVIDERS: PCP Internal Medicine; Visit Provider Internal Medicine
DX: R10.9 Unspecified abdominal pain (principal)
CPT/HCPCS: 76700

== ENCOUNTER 2023-01-27 15:09 | Outpatient (RCR) | payer MEDICARE, SELFPAY ==
--- NOTE | 2023-01-28 07:17 | PTOPEVAL1 ---
Assessment and note entered by Kamila Bauer DPT Evaluation Information Assessment Status Evaluation Diagnosis neck pain, B shoulder pain Onset 01/24/23 Subjective Information Patient reports he has had B shoulder and neck pain for the last 2 years. He reports pain has gotten worse in the last few months. Patient reports most pain with sleeping and looking side to side to have conversation. He reports he wears a CPAP and sleeps on his back. He reports pain stops at B shoulders. He reports sitting in his recliner helps to decrease pain. Patient also reports he has decreased balance at times Reported Pain Level Pain Score 6,5: Self Report Assessment PT Clinical Summary Patient is a 67 year old male who presents to PT with cervical and B shoulder pain. Patient demonstrates decreased cervical ROM, elevated L first rib, and B UE weakness impairing his ability to sleep, drive and turn his head to hold conversation. Patient would benefit from skilled PT to address impairments and return to PLOF. Plan of Care Interventions Electrical Stimulation,Gait Training,Hot Pack/Cold Pack,Manual Therapy,Mechanical Traction,Neuro Re- education,Patient/Caregiver Educati,Therapeutic Activities,Therapeutic Exercise PT Services Indicated Yes Treatment Frequency and 2x weekly for 10 visits Duration These treatments will address the objective and functional deficits as defined above. The patient will be advanced safely and appropriately in order for the patient to progress towards his/her prior level of function. Additional exercises will be introduced and as well as a comprehensive home exercise program upon discharge, if needed, ?to ensure carryover of functional gains achieved in the clinic. This treatment plan has been reviewed and agreement upon by the patient.
--- NOTE | 2023-01-28 07:17 | OPREHPOC ---
Outpatient Therapy Plan of Care This is a Multidisciplinary Plan of Care that may contain components documented by all disciplines (PT, OT, and ST.) PT Problem 1 PT Problem #1 Knowledge Deficit PT Goal 1 Goal Patient to demonstrate independence with HEP Target Visit 5 PT Problem 2 PT Problem #2 Pain PT Goal 1 Goal 1. Patient to demonstrate highest pain at 2/10 2. Patient to report no sleep disturbance due to neck pain Target Visit 10 PT Problem 3 PT Problem #3 Impaired Range of Motion PT Goal 1 Goal Patient to demonstrate 60 deg of B cervical rotation to improve ability to turn head to look over his shoulder to carry on conversation Target Visit 10 PT Problem 4 PT Problem #4 Impaired Strength PT Goal 1 Goal Patient to demonstrate 5/5 B UE strength to return to house hold chores at PLOF Target Visit 10
--- NOTE | 2023-03-03 16:45 | OPREHPOC ---
Outpatient Therapy Plan of Care This is a Multidisciplinary Plan of Care that may contain components documented by all disciplines (PT, OT, and ST.) PT Problem 1 PT Problem #1 Knowledge Deficit PT Goal 1 Goal Patient to demonstrate independence with HEP Target Visit 5 Progress Met PT Problem 2 PT Problem #2 Pain PT Goal 1 Goal 1. Patient to demonstrate highest pain at 2/10 2. Patient to report no sleep disturbance due to neck pain Target Visit 18 Comment progressing PT Problem 3 PT Problem #3 Impaired Range of Motion PT Goal 1 Goal Patient to demonstrate 60 deg of B cervical rotation to improve ability to turn head to look over his shoulder to carry on conversation Target Visit 18 Comment progressing PT Problem 4 PT Problem #4 Impaired Strength PT Goal 1 Goal Patient to demonstrate 5/5 B UE strength to return to house hold chores at PLOF Target Visit 18 Comment progressing
--- NOTE | 2023-03-03 16:45 | PTOPREEVAL ---
Assessment and note entered by Kamila Bauer DPT Evaluation Information Assessment Status Re-evaluation Diagnosis neck pain, B shoulder pain Onset 01/24/23 Subjective Information Patient reports he has noticed improvements since starting PT especially since initiating traction. He reports he reports he has been able to look side to side with less pain and last night he was able to sleep in bed all night without getting up due to pain. He reports the shoulders and neck still cause him pain at end range of rotation. Reported Pain Level Pain Score 4,4: Self Report Assessment PT Clinical Summary Mr. Cano has been seen for 10 visits of skilled PT with good progression towards goals. Patient has improved cervical ROM and UE strength but continues to report pain at the neck and B shoulders. Patient reports he has been able to sleep with less disturbance but has difficulty with looking over his shoulder to talk and drive. He would benefit from continued skilled PT to address remaining impairments and return to PLOF. Plan of Care Interventions Electrical Stimulation,Gait Training,Hot Pack/Cold Pack,Manual Therapy,Mechanical Traction,Neuro Re- education,Patient/Caregiver Educati,Therapeutic Activities,Therapeutic Exercise PT Services Indicated Yes Treatment Frequency and continue 2x weekly for 8 visits Duration These treatments will address the objective and functional deficits as defined above. The patient will be advanced safely and appropriately in order for the patient to progress towards his/her prior level of function. Additional exercises will be introduced and as well as a comprehensive home exercise program upon discharge, if needed, ?to ensure carryover of functional gains achieved in the clinic. This treatment plan has been reviewed and agreement upon by the patient.
--- NOTE | 2023-04-06 17:13 | OPREHPOC ---
Outpatient Therapy Plan of Care This is a Multidisciplinary Plan of Care that may contain components documented by all disciplines (PT, OT, and ST.) PT Problem 1 PT Problem #1 Knowledge Deficit PT Goal 1 Goal Patient to demonstrate independence with HEP Target Visit 5 Progress Met PT Problem 2 PT Problem #2 Pain PT Goal 1 Goal 1. Patient to demonstrate highest pain at 2/10 2. Patient to report no sleep disturbance due to neck pain Target Visit 18 Progress Not Met Comment . PT Problem 3 PT Problem #3 Impaired Range of Motion PT Goal 1 Goal Patient to demonstrate 60 deg of B cervical rotation to improve ability to turn head to look over his shoulder to carry on conversation Target Visit 18 Progress Not Met Comment . PT Problem 4 PT Problem #4 Impaired Strength PT Goal 1 Goal Patient to demonstrate 5/5 B UE strength to return to house hold chores at PLOF Target Visit 18 Progress Not Met Comment .
--- NOTE | 2023-04-06 17:14 | PTOPDC ---
Assessment and note entered by Kamila Bauer DPT Evaluation Information Assessment Status Discharge - Pt Not Presen Diagnosis neck pain, B shoulder pain Onset 01/24/23 Subjective Information Patient reports he has good improvement in mobility since start of PT. He reports overall pain has decreased since start of PT as well. He reports compliance with HEP Reported Pain Level Pain Score 4,2: Self Report Pain Score 4,2: Self Report Assessment PT Clinical Summary Mr. Cano attended 18 visits of skilled PT with progress towards goals but did not meet all set goals. He continues to be limited in cervical rotation for looking his shoulder to drive but overall reports he feels his mobility has improved . Patient's pain decreased throughout POC. He will return to MD on 04/14/23. He will be discharged at this time to follow up with MD. Plan of Care PT Services Indicated No
== END 2023-04-06 17:26 | disposition home or self-care (01) ==
LOC: CHSPT 15:09
PROVIDERS: Visit Provider Nurse Practitioner Family
DX: M47.892 Other spondylosis, cervical region (principal); R29.6 Repeated falls
CPT/HCPCS: 97012; 97014; 97110; 97112; 97140; 97150; 97161; G0283

== ENCOUNTER 2023-09-08 15:30 | Outpatient (RCR) | payer MEDICARE, SELFPAY | END 2023-10-03 09:36 | disposition home or self-care (01) | LOC: ANHDMC 15:30 | PROVIDERS: Visit Provider Internal Medicine | DX: E11.65 Type 2 diabetes mellitus with hyperglycemia (principal); Z71.89 Other specified counseling | CPT/HCPCS: G0108 ==

== ENCOUNTER 2023-12-19 11:10 | Outpatient (CLI) | payer MEDICARE, SELFPAY ==
--- NOTE | ~2023-12-19 | US_ITS ---
EXAMINATION: US thyroid DATE: 12/19/2023 11:29 INDICATION: Left thyroid lobe mass TECHNIQUE: Multiple ultrasound images of the thyroid were obtained. COMPARISON: None. FINDINGS: The right thyroid lobe measures 4.8 x 2.1 x 1.8 cm. The left thyroid lobe measures 4.3 x 1.8 x 1.9 c m. Isthmus measures 0.5 cm. There is normal echotexture and echogenicity throughout the thyroid gland . No discrete nodules identified. Normal vascular flow is present. IMPRESSION: Normal thyroid ultrasound findings. Reviewed, dictated and finalized at location K.
== END 2023-12-19 11:11 ==
PROVIDERS: PCP Internal Medicine; Visit Provider Otolaryngology
DX: E07.9 Disorder of thyroid, unspecified (principal)
CPT/HCPCS: 76536

== ENCOUNTER 2023-12-27 10:30 | Outpatient (RCR) | payer MEDICARE, SELFPAY | END 2024-02-07 11:29 | disposition home or self-care (01) | LOC: ANHDMC 10:30 | PROVIDERS: PCP Internal Medicine; Visit Provider Internal Medicine | DX: E11.65 Type 2 diabetes mellitus with hyperglycemia (principal); Z71.89 Other specified counseling | CPT/HCPCS: G0108 ==

== ENCOUNTER 2024-01-26 12:39 | Outpatient (CLI) | payer MEDICARE, SELFPAY ==
--- NOTE | ~2024-01-26 | XR_ITS ---
EXAMINATION: XR chest 2V 01/26/2024 13:05 INDICATION: Shortness of breath PROCEDURE: 2 view chest COMPARISON: Comparison to multiple prior studies sequentially, with oldest reviewed study dated 07/04. FINDINGS: The lungs are clear. The cardiomediastinal silhouette is within normal limits. There are no pleural effusions. There is no pneumothorax suspected. IMPRESSION: 1: NO ACUTE CARDIOPULMONARY DISEASE. Reviewed, dictated and finalized at location B.
[2024-01-26 12:58] LABS: Basophils Absolute Auto 0.05 K/mm3 (0.00-0.10); Basophils Percent Auto 0.6 % (0.0-1.0); Eosinophils Absolute Auto 0.45 K/mm3 (0.02-0.50); Eosinophils Percent Auto 5.3 % (1.0-6.0); Hematocrit 43.6 % (37.0-46.0); Hemoglobin 14.1 g/dL (12.4-15.3); Immature Granulocyte Absolute 0.02 K/mm3 (0.00-0.00); Immature Granulocyte Percent A 0.2 % (0.0-0.0); Lymphocytes Absolute Auto 2.01 K/mm3 (1.10-4.50); Lymphocytes Percent Auto 23.7 % (18.0-42.0); Mean Corpuscular HGB Conc 32.3 g/dL (32-36); Mean Corpuscular Hemoglobin 28.2 pg (27.0-31.0); Mean Corpuscular Volume 87.2 fL (78.0-102.0); Mean Platelet Volume 9.5 fl (8.7-11.0); Monocytes Absolute Auto 0.88 K/mm3 (0.10-0.90); Monocytes Percent Auto 10.4 % (2.0-11.0); Neutrophils Absolute Auto 5.08 K/mm3 (1.70-7.20); Neutrophils Percent Auto 59.8 % (50.0-70.0); Platelet Count Result 204 K/mm3 (150-420); Red Cell Distribution Width 13.3 % (11.6-14.4); White Blood Count 8.5 K/mm3 (4.8-10.8)
[2024-01-26 12:59] LABS: Add Urine Microscopic? YES; Appearance Urine Clear (Clear); Bilirubin Urine Negative (Negative); Blood Urine Negative (Negative); Color Urine Light Yellow (Yellow); Glucose Urine UA 3+ (Negative); Ketones Urine Negative (Negative); Leukocyte Esterase Ur Negative (Negative); Nitrate Urine Negative (Negative); Protein Urine 1+ (Negative); Specific Grav Ur 1.015 (1.010-1.020); Urobilinogen Urine 0.2 mg/dL (0.2-1.0)
[2024-01-26 13:06] LABS: Bacteria Urine Trace /hpf; Mucus Urine Few /lpf; RBC Urine None seen /hpf (0-2); Squamous Epithelial Cell Urine Few /hpf (Few); WBC Urine None seen /hpf (0-3)
[2024-01-26 13:38] LABS: Alanine Aminotransferase 11 U/L (16-63); Alkaline Phosphatase 109 U/L (46-116); Anion Gap 9 mmol/L (4-12); Aspartate Amino Transferase 15 U/L (15-37); Bilirubin,Total 0.6 mg/dL (0.00-1.00); Blood Urea Nitrogen 15 mg/dL (7-18); Calcium 9.5 mg/dL (8.5-10.1); Carbon Dioxide 33 mmol/L (21-32); Chloride 104 mmol/L (98-108); Estimated Glomerular Filt Rate > 60; Glucose 152 mg/dL (70-99); Osmolality Calculated 305 mOsm/kg (285-295); Potassium 4.2 mmol/L (3.5-5.1); Sodium 146 mmol/L (136-145); Total Protein 7.4 g/dL (6.4-8.2)
[2024-01-26 14:07] LABS: MRSA (PCR) NOT DETECTED (NOT DETECTE)
== END 2024-01-26 12:40 | disposition home or self-care (01) ==
LOC: CHSLAB 12:42
PROVIDERS: PCP Internal Medicine; Visit Provider Internal Medicine
DX: Z01.818 Encounter for other preprocedural examination (principal)
CPT/HCPCS: 36415; 71046; 80053; 81001; 85025; 87641

== ENCOUNTER 2024-03-01 16:25 | Outpatient (RCR) | payer MEDICARE, SELFPAY ==
--- NOTE | 2024-03-01 17:53 | OPREHPOC ---
Outpatient Therapy Plan of Care This is a Multidisciplinary Plan of Care that may contain components documented by all disciplines (PT, OT, and ST.) PT Problem 1 PT Problem #1 Knowledge Deficit PT Goal 1 Goal / Goal Update The patient will be independent in a home exercise program. PT Problem 2 PT Problem #2 Pain PT Goal 1 Goal / Goal Update 1. The patient will report no greater than 5/10 neck pain with turning his head side to side to improve ability to see his visual field. 2. The patient will report no greater than 2/10 right upper arm pain with reaching overhead. Target Visit 10 PT Problem 3 PT Problem #3 Impaired Functional Mobil PT Goal 1 Goal / Goal Update 1. The patient will demonstrate 20% or less self perceived disability per the Neck Index questionnaire. 2. The patient will be able to lift 8# from waist to shoulder with 3/10 or less pain to improve ability to lift household items. Target Visit 10 PT Problem 4 PT Problem #4 Impaired Range of Motion PT Goal 1 Goal / Goal Update The patient will improve cervical AROM in all planes by 5+ degrees to improve functional range of motion. Target Visit 10
--- NOTE | 2024-03-01 17:53 | PTOPEVAL1 ---
Assessment and note entered by Karie Ladd, PT Evaluation Information Assessment Status Evaluation ICD-10 Condition Codes (PT) Cervicalgia M54.2 Other ICD-10 Condition Codes ( M43.6 PT) Onset 02/22/24 Subjective Information Edward Cano reports he had a multiple level cervical fusion surgery on 02/08/24. He is having soreness in his neck and right UE from his armpit to his elbow. He is having constant pain and still has to use prescribed pain medication. He notes difficulty getting comfortable, sleeping, moving his head, and moving the right arm. He is able to perform bathing and grooming at this time but notes it makes his pain worse. He does not drive and is retired so does not work either. He feels limited with being able to enjoy playing with his grandkids. Reported Pain Level Pain Score 7: Self Report Assessment PT Clinical Summary Edward Cano presents 3 s/p multilevel cervical fusion performed on 02/08/24. He is on an 8# lifting restriction per the patient. He is having difficulty with getting comfortable, sleeping, moving his head, moving his right arm, and performing household tasks. He objectively demonstrates decreased cervical AROM, decreased bilateral shoulder and elbow strength, decreased right shoulder AROM, decreased right wood tile installer strength , and decreased functional abilities. He will benefit from skilled PT to address these limitations. Plan of Care Interventions Electrical Stimulation,Hot Pack/Cold Pack,Manual Therapy,Neuro Re-education,Patient/Caregiver Educati,Therapeutic Activities,Therapeutic Exercise PT Services Indicated Yes Treatment Frequency and 3 times a week for 10 visits Duration These treatments will address the objective and functional deficits as defined above. The patient will be advanced safely and appropriately in order for the patient to progress towards his/her prior level of function. Additional exercises will be introduced and as well as a comprehensive home exercise program upon discharge, if needed, ?to ensure carryover of functional gains achieved in the clinic. This treatment plan has been reviewed and agreement upon by the patient.
--- NOTE | 2024-04-11 17:05 | OPREHPOC ---
Outpatient Therapy Plan of Care This is a Multidisciplinary Plan of Care that may contain components documented by all disciplines (PT, OT, and ST.) PT Problem 1 PT Problem #1 Knowledge Deficit PT Goal 1 Goal / Goal Update The patient will be independent in a home exercise program. Progress Met PT Problem 2 PT Problem #2 Pain PT Goal 1 Goal / Goal Update 1. The patient will report no greater than 5/10 neck pain with turning his head side to side to improve ability to see his visual field. 2. The patient will report no greater than 2/10 right upper arm pain with reaching overhead. Target Visit 10 Progress Met PT Problem 3 PT Problem #3 Impaired Functional Mobil PT Goal 1 Goal / Goal Update 1. The patient will demonstrate 20% or less self perceived disability per the Neck Index questionnaire. 2. The patient will be able to lift 8# from waist to shoulder with 3/10 or less pain to improve ability to lift household items. Target Visit 10 Progress Met PT Problem 4 PT Problem #4 Impaired Range of Motion PT Goal 1 Goal / Goal Update The patient will improve cervical AROM in all planes by 5+ degrees to improve functional range of motion. Target Visit 10 Progress Partially Met
--- NOTE | 2024-04-11 17:05 | PTOPDC ---
Assessment and note entered by Karie Ladd, PT Evaluation Information Assessment Status Discharge ICD-10 Condition Codes (PT) Cervicalgia M54.2 Other ICD-10 Condition Codes ( M43.6 PT) Onset 02/22/24 Subjective Information Edward Cano reports his neck is doing better. He notes pain has subsided and he only gets occasional soreness most notably with changes in weather. 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 He also notes no limitations with bathing, dressing, and grooming. Reported Pain Level Pain Score 0: Self Report Assessment PT Clinical Summary Edward Cano has completed 9 skilled PT visits for cervicalgia following a cervical fusion. He is reporting mostly resolved pain with just occasional soreness and ability to perform all daily activities without difficulty. He objectively demonstrates improved cervical and bilateral shoulder AROM, improved bilateral UE strength, and less tension in cervical and thoracic muscles. He has met all goals and will be discharged. Plan of Care PT Services Indicated No
== END 2024-04-11 05:00 | disposition home or self-care (01) ==
LOC: CHSPT 16:25
DX: M43.6 Torticollis (principal); M54.2 Cervicalgia
CPT/HCPCS: 97014; 97110; 97140; 97161; 97750; G0283

== ENCOUNTER 2024-11-28 11:06 | Outpatient (CLI) | payer MEDICARE, SELFPAY ==
--- NOTE | ~2024-11-28 | XR_ITS ---
EXAM/ PROCEDURE: XR shoulder RT min 2V - 11/28/2024 11:20 CDT HISTORY: 69 years old Male with Right shoulder pain, hx of R bicep tear COMPARISON: None available TECHNIQUE: Four view(s) FINDINGS/ IMPRESSION: There are no fractures or dislocations.Joint space narrowing, subchondral sclerosis, subchondral cyst formation and osteophyte formation, compatible with moderate osteoarthritis. Reviewed, dictated and finalized at location A.
== END 2024-11-28 11:07 | disposition home or self-care (01) ==
PROVIDERS: PCP Internal Medicine
DX: M25.511 Pain in right shoulder (principal); Z87.828 Personal history of other (healed) physical injury and trauma
CPT/HCPCS: 73030